=== PATIENT | female | born 2000 | race Caucasian/White ===

== ENCOUNTER 2021-04-02 20:55 | Emergency (ER) | payer MEDICAID ==
[~2021-04-02] VITALS: Ht 152.4 cm; Wt 68.0 kg
--- NOTE | 2021-04-02 20:55 | NUR ---
PT OBIE ALS. TAKEN TO BED 8
[2021-04-02 20:56] VITALS: BP 102/50
--- NOTE | 2021-04-02 20:56 | NUR ---
20 YO F BIBA FROM HOME WITH C/C OF ETOH. PER MEDIC PT HAD ABOUT 10-15 SHOTS OF TEQUILA. PT IS VOMITING. DENIED PT FALLING OR HITTING HEAD. PT IS A&O X0, NONRESPONSIVE TO STIMULUS. VSS. BS 103. PT GIVEN ZOFRAN 8MG IV TO L AC 18g. HX AND RX DENIED. ALLERG: PCN
--- NOTE | 2021-04-02 20:57 | NUR ---
Dr. Herrera examining patient.
[2021-04-02] MEDS ORDERED: METOCLOPRAMIDE 10 MG/2 ML INJ VIAL IVP ONE (21:00)
[2021-04-02] MEDS ORDERED: AMMONIA AROMATIC 1 INHL INH ONE (21:00)
[2021-04-02] MEDS ORDERED: NACL 0.9% 1,000 ML IV ONE (21:00)
[2021-04-02 21:19] LABS: BASOPHILS # (AUTO) 0.1 K/uL (0.00-0.22); BASOPHILS % (AUTO) 0.4 % (0.0-2.0); EOSINOPHILS # (AUTO) 0.6 K/uL (0-0.4); HEMATOCRIT 37.1 % (36-48); LYMPHOCYTES # (AUTO) 5.3 K/uL (2.5-16.5); LYMPHOCYTES % (AUTO) 27.2 % (20.5-51.1); MEAN CORPUSCULAR HEMOGLOBIN 27 pg (27-31); MEAN CORPUSCULAR HGB CONC 32 g/dL (33-37); MEAN CORPUSCULAR VOLUME 84.6 fL (80-94); MONOCYTES # (AUTO) 1.6 K/uL (0.8-1.0); MONOCYTES % (AUTO) 8.2 % (1.7-9.3); NEUTROPHILS # (AUTO) 11.8 K/uL (1.8-7.7); NEUTROPHILS % (AUTO) 61.2 % (42.2-75.2); PLATELET COUNT (AUTO) 377 K/uL (140-450); RED BLOOD CELL COUNT(AUTO) 4.39 MIL/uL (4.20-5.40); RED CELL DISTRIBUTION WIDTH 13.9 % (11.6-13.7); WHITE BLOOD COUNT (AUTO) 19.4 K/uL (4.5-11.0)
[2021-04-02 21:34] LABS: ALBUMIN 3.9 g/dL (3.4-5.0); ANION GAP 16.4 (8-16); CARBON DIOXIDE 22.9 mmol/L (21-32); CREATININE 0.8 mg/dL (0.6-1.3); POTASSIUM 3.3 mmol/L (3.5-5.1); TOTAL BILIRUBIN 0.1 mg/dL (0.0-1.0)
--- NOTE | 2021-04-02 21:40 | NUR ---
MOM AT BEDSIDE. REPORTED PT'S VACCINATION STATUS, DENIES PT HITTING HEAD. STATES IT'S PT'S 21ST BIRTHDAY AND WASNT AWARE SHE WAS DRINKING SO MUCH. DENIED HX, RX AND SURGERIES.
--- NOTE | 2021-04-02 23:46 | NUR ---
PT IS AROUSABLE TO PAIN. VSS. PT IS IN STABLE CONDITION. EQUAL RISE AND FALL OF CHEST WALL. BED LOCKED IN LOWEST POSITION, SIDE RAILS X2.
--- NOTE | 2021-04-03 00:14 | NUR ---
PT IS ABLE TO AMBULATE. WALKED TO RR AND BACK TO BED WITH STEADY GAIT. TOLERATED DRINKING FLUIDS. ASKED FOR FOOD. PT GIVEN CRACKERS. PER , PT MAY LEAVE IF SHE CAN WALK AND DRINK.
[2021-04-03 00:25] VITALS: BP 86/53
--- NOTE | 2021-04-03 00:25 | NUR ---
Patient discharged with v/s stable. Written and verbal after care instructions given and explained. Patient verbalized understanding. Ambulatory with by parent. All questions addressed prior to discharge. Advised to follow up with PMD.
== END 2021-04-03 00:25 | disposition home or self-care (01) ==
LOC: MED 20:55
DX: F10.129 Alcohol abuse with intoxication, unspecified (principal); R41.82 Altered mental status, unspecified; Z88.0 Allergy status to penicillin
CPT/HCPCS: 36415; 80053; 81025; 85025; 96361; 96374; 99283; G0482; J2765; J7030

== ENCOUNTER 2021-10-21 13:31 | Emergency (ER) | payer MEDICAID ==
[~2021-10-21] VITALS: Ht 154.9 cm; Wt 79.5 kg
[2021-10-21 13:49] VITALS: BP 116/75
--- NOTE | 2021-10-21 13:57 | NUR ---
PT AMB TO BED 9.
[2021-10-21] MEDS ORDERED: IBUP-2213 PO (14:28)
--- NOTE | 2021-10-21 14:34 | NUR ---
C/O LEFT UPPER LIP NUMBNESS X 30 MINS AGO. PT STATE THAT SHE THINKS SOMETHING BIT HER UPPER LIP CAUSING NUMBNESS. REST IN BED. ALLERGIES: PENICILLINS
[2021-10-21 14:35] VITALS: BP 116/75
== END 2021-10-21 14:35 | disposition home or self-care (01) ==
LOC: MED 13:31
DX: S00.561A Insect bite (nonvenomous) of lip, initial encounter (principal); R20.0 Anesthesia of skin; Z88.0 Allergy status to penicillin; W57.XXXA Bitten or stung by nonvenomous insect and other nonvenomous arthropods, initial encounter; Y93.89 Activity, other specified; Y92.89 Other specified places as the place of occurrence of the external cause; Y99.8 Other external cause status
CPT/HCPCS: 99282

== ENCOUNTER 2021-12-19 10:18 | Emergency (ER) | payer MEDICAID, OTHER ==
[~2021-12-19] VITALS: Ht 152.4 cm; Wt 79.4 kg
[~2021-12-19 10:18] MED LIST: IBUP-2213 PO
[2021-12-19 10:24] VITALS: BP 137/73
--- NOTE | 2021-12-19 10:33 | NUR ---
21 Y/O F BIB SELF , C/O LEFT ANKLE PAIN AFTER TWISTING ANKLE WHILE TAKING OUT GROCERIES. STATED NUMBNESS AND TINGLING ON THE SIDE OF THE FOOT. ALLERGIES: PCN PMH: DENIES
--- NOTE | 2021-12-19 10:55 | NUR ---
DR COSTELLO AT BEDSIDE.
[2021-12-19] MEDS ORDERED: IBUPROFEN 400 MG TAB PO ONE (11:00)
--- NOTE | 2021-12-19 11:07 | NUR ---
X-RAY AT BEDSIDE.
--- NOTE | 2021-12-19 12:22 | NUR ---
Patient discharged with v/s stable. Written and verbal after care instructions ABOUT ANKLE SPRAIN given and explained. Patient verbalized understanding. Ambulatory with steady gait WITH CRUTCHES. All questions addressed prior to discharge. Advised to follow up with PMD.
--- NOTE | 2021-12-19 12:23 | NUR ---
The patient's care was reviewed and supervised by Demetrice Guzman RN.
== END 2021-12-19 12:22 | disposition home or self-care (01) ==
LOC: MED 10:18
DX: S93.402A Sprain of unspecified ligament of left ankle, initial encounter (principal); Z88.0 Allergy status to penicillin; Z72.89 Other problems related to lifestyle; X58.XXXA Exposure to other specified factors, initial encounter; Y93.89 Activity, other specified; Y92.89 Other specified places as the place of occurrence of the external cause; Y99.8 Other external cause status
CPT/HCPCS: 29515; 73610; 81002; 81025; 99283